=== PATIENT | male | born 1960 | race Caucasian/White ===

== ENCOUNTER 2019-10-08 13:14 | Emergency (ER) | payer MEDICARE, OTHER ==
[~2019-10-08] VITALS: Ht 180.3 cm; Wt 108.9 kg
--- NOTE | 2019-10-08 13:45 | NUR ---
ED Nurse Note: PT AMBULATED TO ED C/O LEFT HIP PAIN SHOOTING DOWN TO LEFT LEG X 2 DAYS. 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 AO4. AMBULATES WITH STEADY GAIT.
[2019-10-08 13:50] VITALS: BP 132/92
[2019-10-08] MEDS ORDERED: ROBAXIN-500MG ORAL (13:58)
[2019-10-08] MEDS ORDERED: LIDODERM700 M1 TOPIC (13:58)
[2019-10-08] MEDS ORDERED: IBUPROFEN600 MG ORAL (13:58)
--- NOTE | 2019-10-08 13:58 | Emergency Room Report ---
History of Present Illness General Chief Complaint: Pain Source: Patient Present Illness HPI 58-year-old male with history of schizophrenia brought in by rn field case manager and controlled here complaining of 2 days of left-sided hip pain radiating to left leg. Denies any fall or injury. Denies tingling numbness. Is the pain 7 out of 10 worsening upon sitting and standing. Denies chest pain, shortness of breath, palpitation, headache and dizziness, saddle paresthesia, tingling numbness, urinary or bowel incontinence. Has not taken medication for symptom relief Allergies: Coded Allergies: No Known Allergies (Unverified , 10/08/19) Patient History Past Medical History: see triage record Past Surgical History: unable to obtain Pertinent Family History: none Immunizations: UTD Reviewed Nursing Documentation: PMH: Agreed; PSxH: Agreed Nursing Documentation-PMH Past Medical History: No Stated History Review of Systems All Other Systems: negative except mentioned in HPI Physical Exam Vital Signs Date Time Temp Pulse Resp B/P (MAP) Pulse Ox O2 Delivery O2 Flow Rate FiO2 10/08/19 13:44 98.2 83 16 158/102 (120) 100 Room Air Sp02 EP Interpretation: reviewed, normal General Appearance: no apparent distress, alert, GCS 15, non-toxic Head: normocephalic, atraumatic Eyes: bilateral eye normal inspection, bilateral eye PERRL ENT: hearing grossly normal, normal pharynx, no angioedema, normal voice Neck: full range of motion, supple/symm/no masses Respiratory: chest non-tender, lungs clear, normal breath sounds, no rhonchi, no respiratory distress, no retraction, no wheezing, speaking full sentences Cardiovascular #1: regular rate, rhythm, no edema, no murmur Cardiovascular #2: 2+ femoral (R), 2+ femoral (L), 2+ dorsalis pedis (R), 2+ dorsalis pedis (L) Gastrointestinal: normal bowel sounds, non tender, soft, non-distended, no guarding, no rebound Rectal: deferred Genitourinary: no CVA tenderness Musculoskeletal: back normal, normal range of motion, digits/nails normal, no calf tenderness, gait/station normal, other - Left straight leg test positive Neurologic: alert, motor strength/tone normal, oriented x3, sensory intact, responsive, speech normal Psychiatric: judgement/insight normal, memory normal, mood/affect normal, no suicidal/homicidal ideation Skin: no rash Lymphatic: no adenopathy Medical Decision Making PA Attestation Diagnosis and treatment plans were reviewed and discussed with my supervising physician Dr. 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 Denies any fall or injury. Denies tingling numbness. Is the pain 7 out of 10 worsening upon sitting and standing. Denies chest pain, shortness of breath, palpitation, headache and dizziness, saddle paresthesia, tingling numbness, urinary or bowel incontinence. Has not taken medication for symptom relief Ddx considered but are not limited to: Lumbar spine sprain, strain, fracture, contusion, neuropathy, sciatica Vital signs: are WNL, pt. is afebrile H&PE are most consistent with: Left-sided sciatica ORDERS: No fall or injury Motrin, Robaxin, lidocaine patch ER intervention: Toradol, Robaxin DISCHARGE: At this time pt. is stable for d/c to home. Will provide printed patient care instructions, and any necessary prescriptions. Care plan and follow up instructions have been discussed with the patient prior to discharge. Patient to follow primary care provider, take medication as directed, avoid strenuous physical activity, if worsening symptoms return to the emergency room Last Vital Signs Date Time Temp Pulse Resp B/P (MAP) Pulse Ox O2 Delivery O2 Flow Rate FiO2 10/08/19 13:44 98.2 83 16 158/102 (120) 100 Room Air Disposition: HOME, SELF-CARE Condition: Stable Scripts Lidocaine Patch* (Lidoderm Patch*) 1 Each Adh..patch 1 PATCH TOPIC DAILY, #7 PATCH 0 Refills Patch(es) may remain in place for up to 12 hours in any 24-hour period. Prov: Dale Paula 10/08/19 Methocarbamol* (ROBAXIN-500*) 500 Mg Tablet 500 MG ORAL TID PRN for For Pain, #15 TAB 0 Refills Prov: Dale Paula 10/08/19 Ibuprofen* (MOTRIN*) 600 Mg Tablet 600 MG ORAL Q8H PRN for For Pain, #30 TAB 0 Refills Prov: Dale Paula 10/08/19 Patient Instructions: Sciatica With [facility] Additional Instructions: Take medication as directed, follow-up with your primary care provider, physical therapy may be beneficial, MRI may be beneficial, if worsening symptoms return to the emergency room Dale Paula Oct 08, 2019 13:57
[2019-10-08] MEDS ORDERED: Ketorolac 30mg Inj IM ONE (14:00)
[2019-10-08] MEDS ORDERED: Methocarbamol 750mg tab ORAL ONE (14:00)
[2019-10-08 14:15] VITALS: BP 132/92
--- NOTE | 2019-10-08 14:15 | NUR ---
ER DISCHARGE NOTE: Patient is cleared to be discharged per ERMD, pt is aox4, on room air, with stable vital signs. accompanied by parent. pt was given dc and prescription instructions, pt was able to verbalize understanding, pt id band removed. pt is able to ambulate with steady gait. pt took all belongings.
== END 2019-10-08 14:15 | disposition home or self-care (01) ==
LOC: EMR 13:59
DX: M54.32 Sciatica, left side (principal)
CPT/HCPCS: 96372; 99283; J1885